=== PATIENT | male | born 1985 | race Caucasian/White ===

== ENCOUNTER 2017-01-18 20:19 | Emergency (ER) | payer BC, OTHER ==
[2017-01-18 20:31] VITALS: BP 145/103
[2017-01-18] MEDS ORDERED: Penicillin V Potassium 500 MG Tab PO ONE (20:48)
--- NOTE | 2017-01-18 20:54 | EDM.PDOC ---
ED HPI GENERAL MEDICAL PROBLEM - General Chief Complaint: ENT Problem Stated Complaint: tooth pain fever Time Seen by Provider: 01/18/17 20:24 Source of Information: Reports: Patient, RN Notes Reviewed History Limitations: Reports: No Limitations - History of Present Illness INITIAL COMMENTS - FREE TEXT/NARRATIVE: The patient states that he had for upper incisors extracted 2-3 weeks ago. He was instructed to rinse his mouth with salt water, however, he admits that he has not been compliant with that. He developed pain to the gingiva yesterday, primarily if he touches it with his tongue or food. No drainage, and no fever. He states that he contacted the office of his dentist today and was instructed to come to the ED to be checked for an infection. The patient has an appointment to follow-up with his dentist this coming , 01/20/2017. The patient's PCP is Dr. Clint Addison. Oral/Mouth Pain Score (Numeric/FACES): 5 - Related Data Allergies Allergy/AdvReac Type Severity Reaction Status Date / Time No Known Allergies Allergy Verified 12/14/15 01:16 Home Meds: Home Meds Penicillin V Potassium 500 mg PO Q6HR #8 tab 01/18/17 [Rx] Past Medical History HEENT History: Reports: Impaired Vision Endocrine/Metabolic History: Reports: Hypothyroidism (resolved) - Past Surgical History HEENT Surgical History: Reports: Myringotomy w Tube(s) (bilateral), Oral Surgery (Dental extractions, including wisdom teeth), Tonsillectomy Social & Family History - Family History Family Medical History: Noncontributory - Tobacco Use Smoking Status *Q: Current Some Day Smoker Years of Tobacco use: 17 Packs/Tins Daily: 0.1 Packs/Tins Daily Comment: Down from 2 ppd - Caffeine Use Caffeine Use: Reports: Coffee, Energy Drinks, Soda, Tea - Alcohol Use Alcohol Use History: Yes Alcohol Use Frequency: Socially - Recreational Drug Use Recreational Drug Use: No - Living Situation & Occupation Living situation: Reports: , Alone 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) ED ROS ENT - Review of Systems Review Of Systems: See Below Constitutional: Reports: No Symptoms HEENT: Reports: No Symptoms Respiratory: Reports: No Symptoms Cardiovascular: Reports: No Symptoms Endocrine: Reports: No Symptoms GI/Abdominal: Reports: No Symptoms : Reports: No Symptoms Musculoskeletal: Reports: No Symptoms Skin: Reports: No Symptoms Neurological: Reports: No Symptoms Psychiatric: Reports: No Symptoms Hematologic/Lymphatic: Reports: No Symptoms Immunologic: Reports: No Symptoms ED EXAM, ENT - Physical Exam Exam: See Below Exam Limited By: No Limitations General Appearance: Alert, WD/WN, No Apparent Distress Eye Exam: Bilateral Eye: Normal Inspection Ears: Normal External Exam, Normal Canal, Hearing Grossly Normal, Normal TMs Nose: Normal Inspection, Normal Mucousa, No Blood Mouth/Throat: Normal Lips, Normal Oropharynx, Other (Teeth #1, 2 absent. Tooth # 4 with filling. Teeth numbers 7, 8, 9, 10 absent. Gingiva in this area has not entirely healed, but no obvious swelling or infection. No pointing or drainage. Teeth #13, 14 with fillings. Tooth #19 carious. Tooth #20 absent. Teeth #21, 22 with anterior caries. Tooth #27 with anterior carlita. Tooth #29 with filling. Teeth #30, 31 absent. Tooth #32 with filling.) Head: Atraumatic, Normocephalic Neck: Normal Inspection, Supple, Non-Tender, Full Range of Motion. No: Lymphadenopathy (L), Lymphadenopathy (R) Course - Vital Signs Last Recorded V/S: Last Vital Signs Temp 36.9 C 01/18/17 20:27 Pulse 70 01/18/17 20:27 Resp 16 01/18/17 20:27 BP 145/103 H 01/18/17 20:27 Pulse Ox 100 01/18/17 20:27 - Orders/Labs/Meds Meds: Medications Discontinued Medications Generic Name Dose Route Start Last Admin Trade Name Piotr PRN Reason Stop Dose Admin Penicillin V Potassium 500 mg 01/18/17 20:48 Veetids PO 01/18/17 20:49 ONETIME ONE - Re-Assessments/Exams Free Text/Narrative Re-Assessment/Exam: 01/18/17 20:49 The patient does not have an obvious infection to his upper incisor gingiva, however, it has not healed as well as expected, likely because the patient has not been following the post procedure instructions as given to him by his dentist. I am going to start the patient on penicillin, but only write for enough until he sees his dentist this coming , 01/20/2017. Departure - Departure Time of Disposition: 20:50 Disposition: Home, Self-Care 01 Condition: Good Clinical Impression: Pain of gingiva - Discharge Information Referrals: Clint Addison Jr, MD [Primary Care Provider] - Additional Instructions: You were seen in the emergency room for pain to your upper gums, where you had teeth removed 2-3 weeks ago. On examination, no obvious infection is seen, however, to be on the safe side, you have been started on the antibiotic penicillin. Take one tablet every 6 hours, as prescribed. We recommend that you follow the instructions as previously given to by her dentist, including rinsing your mouth with salt water. Take [id number] Tylenol or ibuprofen as needed for discomfort. It is important that you follow-up with your dentist this coming , 2016, as previously scheduled. If any other problems, please do not hesitate to return to the ER.
== END 2017-01-18 21:02 | disposition home or self-care (01) ==
LOC: JD.ED 20:19
DX: K06.8 Other specified disorders of gingiva and edentulous alveolar ridge (principal); E03.9 Hypothyroidism, unspecified; F17.210 Nicotine dependence, cigarettes, uncomplicated; Z96.22 Myringotomy tube(s) status; Z98.890 Other specified postprocedural states; Z98.818 Other dental procedure status
CPT/HCPCS: 99283; A9270

== ENCOUNTER 2017-03-24 16:47 | Emergency (ER) | payer BC ==
[2017-03-24 16:57] VITALS: BP 160/95
--- NOTE | 2017-03-24 18:40 | EDM.PDOC ---
ED HPI GENERAL MEDICAL PROBLEM - General Chief Complaint: Abdominal Pain Stated Complaint: L SIDE ABDOMINAL PAIN Time Seen by Provider: 03/24/17 17:25 Source of Information: Reports: Patient History Limitations: Reports: No Limitations - History of Present Illness INITIAL COMMENTS - FREE TEXT/NARRATIVE: Patient presents for evaluation and treatment of left lower quadrant abdominal pain that radiates into his left groin and left proximal thigh. States his pain started about 2 weeks ago. He states it is more of a burning sensation. Reports that movement seems to make the pain worse. He is concerned that he may have hernia. He has not appreciated any lumps or masses. No urinary symptoms. No diarrhea or constipation. No fevers or chills. States he has never had anything like this before. Reports that his job is very physically demanding. LLQ abdomen Pain Score (Numeric/FACES): 2 - Related Data Allergies Allergy/AdvReac Type Severity Reaction Status Date / Time No Known Allergies Allergy Verified 03/24/17 16:57 Home Meds: Home Meds . [No Known Home Meds] 03/24/17 [History] Past Medical History - Past Health History Medical/Surgical History: Denies Medical/Surgical History HEENT History: Reports: Impaired Vision, Other (See Below) Other HEENT History: dental pain Endocrine/Metabolic History: Reports: Hypothyroidism - Past Surgical History HEENT Surgical History: Reports: Myringotomy w Tube(s), Oral Surgery, Tonsillectomy Social & Family History - Family History Family Medical History: Noncontributory - Tobacco Use Smoking Status *Q: Never Smoker Years of Tobacco use: 17 Packs/Tins Daily: 0.1 Second Hand Smoke Exposure: No - Caffeine Use Caffeine Use: Reports: Energy Drinks - Recreational Drug Use Recreational Drug Use: No - Living Situation & Occupation Living situation: Reports: , Alone 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 Denies: Nausea, Vomiting : Reports: Other (left groin pain). Denies: Dysuria, Flank Pain, Hematuria Musculoskeletal: Reports: Leg Pain (left proximal leg) Skin: Denies: Lumps ED EXAM, GI/ABD - Physical Exam Exam: See Below Exam Limited By: No Limitations General Appearance: Alert, WD/WN, No Apparent Distress Respiratory/Chest: No Respiratory Distress, Lungs Clear, Normal Breath Sounds Cardiovascular: Normal Peripheral Pulses (2+ dorsalis pedis and posterior tibialis pulses bilaterally), Regular Rate, Rhythm, No Murmur GI/Abdominal Exam: Normal Bowel Sounds, Soft, Non-Tender (Male) Exam: No Hernia Neurological: Alert, Oriented, Normal Cognition Psychiatric: Normal Affect, Normal Mood Skin Exam: Warm, Dry, Normal Color Course - Vital Signs Last Recorded V/S: Last Vital Signs Temp 37.2 C 03/24/17 16:54 Pulse 78 03/24/17 16:54 Resp 18 03/24/17 16:54 BP 160/95 H 03/24/17 16:54 Pulse Ox 99 03/24/17 16:54 - Orders/Labs/Meds Labs: Laboratory Tests 03/24/17 Range/Units 17:35 Urine Color Light yellow (Yellow) Urine Appearance Clear (Clear) Urine pH 7.0 (5.0-8.0) Ur Specific [place] 1.015 (1.005-1.030) Urine Protein Negative (Negative) Urine Glucose (UA) Negative (Negative) Urine Ketones Negative (Negative) Urine Occult Blood Negative (Negative) Urine Nitrite Negative (Negative) Urine Bilirubin Negative (Negative) Urine Urobilinogen 0.2 (0.2-1.0) Ur Leukocyte Esterase Negative (Negative) Urine RBC 0-5 (0-5) /hpf Urine WBC 0-5 (0-5) /hpf Ur Epithelial Cells 0-5 (0-5) /hpf Urine Bacteria Not seen (FEW) /hpf Urine Mucus Not seen (FEW) /hpf - Re-Assessments/Exams Free Text/Narrative Re-Assessment/Exam: 03/24/17 18:35 Reviewed the lab results with the patient. His exam is unremarkable. Will discharge him home. Follow-up with family medicine if his symptoms persist. Discharge instructions as documented. Departure - Departure Time of Disposition: 18:36 Disposition: Home, Self-Care 01 Condition: Good Clinical Impression: Muscle strain - Discharge Information Instructions: Muscle Strain, [id number] Referrals: Clint Addison Jr, MD [Primary Care Provider] - Forms: ED Department Discharge Additional Instructions: [id number] Tylenol or Motrin as needed for pain relief. Recommend using heat to the sore areas. If your symptoms persist beyond 2 weeks follow-up with your primary care provider. Please return to ER if your symptoms change or worsen.
== END 2017-03-24 18:58 | disposition home or self-care (01) ==
LOC: JD.ED 16:47
DX: S39.011A Strain of muscle, fascia and tendon of abdomen, initial encounter (principal); X58.XXXA Exposure to other specified factors, initial encounter
CPT/HCPCS: 81001; 99282; 99284

== ENCOUNTER 2017-04-16 12:11 | Emergency (ER) | payer BC ==
--- NOTE | 2017-04-16 12:29 | EDM.PDOC ---
ED HPI GENERAL MEDICAL PROBLEM - General Chief Complaint: Abdominal Pain Stated Complaint: ABDOMINAL PAIN Time Seen by Provider: 04/16/17 12:29 Source of Information: Reports: Patient - History of Present Illness INITIAL COMMENTS - FREE TEXT/NARRATIVE: Patient is a 32-year-old male with 3 children who is here with essentially 2 separate concerns. His primary concern is pain to his left testicle. He states that he was evaluated in the emergency room on 03/24/2017 for this and hernia was questioned at that time based on physical exam. He did follow-up with his PCP Dr. Addison and had further evaluation who thought it may be inflammation of the epididymis and patient was started on the anti-inflammatories. He states that these did help somewhat with the pain, however he is finished them now and pain is still there. Patient notes that the pain is in his left testicle, radiates up into the left groin/lower abdomen. He states that this does go away completely when he lies flat however and is significantly worse when he is active and moving around especially lifting heavy objects. Patient is also concerned about ulcer. He states that he has significant epigastric pain/heartburn and feels that the acid does reflux back up. He does not smoke or use chewing tobacco. He does do some spicy foods and moderate amount of caffeine/soda. 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 Patient states that overall he has pretty normal bowel movements. Denies regular diarrhea or constipation, does have some diarrhea with certain foods. Has been nauseated recently but no vomiting. He has had nothing to eat today but did have a monitoring. Denies any fever/chills. He has had no recent travel and no ill contacts. Abdomen Pain Score (Numeric/FACES): 8 - Related Data Allergies Allergy/AdvReac Type Severity Reaction Status Date / Time amoxicillin Allergy Burning Verified 04/16/17 12:28 Home Meds: Home Meds Levofloxacin 500 mg PO DAILY 10 Days #10 tablet 04/16/17 [Rx] Past Medical History - Past Health History Medical/Surgical History: Denies Medical/Surgical History HEENT History: Reports: Impaired Vision, Other (See Below) Other HEENT History: dental pain Endocrine/Metabolic History: Reports: Hypothyroidism - Past Surgical History HEENT Surgical History: Reports: Myringotomy w Tube(s), Oral Surgery, Tonsillectomy Social & Family History - Family History Family Medical History: Noncontributory - Tobacco Use Smoking Status *Q: Never Smoker Years of Tobacco use: 17 Packs/Tins Daily: 0.1 Second Hand Smoke Exposure: No - Caffeine Use Caffeine Use: Reports: Energy Drinks - Recreational Drug Use Recreational Drug Use: No - Living Situation & Occupation Living situation: Reports: , Alone 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 Denies: Anorexia, Black Stool, Bloody Stool, Constipation, Decreased Appetite, Hematochezia, Melena, Vomiting : Reports: Other (Left testicular/groin pain). Denies: Discharge, Dysuria Skin: Reports: No Symptoms Neurological: Reports: No Symptoms ED EXAM, GI/ABD - Physical Exam Exam: See Below Exam Limited By: No Limitations General Appearance: Alert, WD/WN, No Apparent Distress Ears: Normal External Exam, Normal Canal, Normal TMs Nose: Normal Inspection Throat/Mouth: Normal Inspection, Normal Lips, Normal Oropharynx Head: Atraumatic, Normocephalic Neck: Normal Inspection, Non-Tender Respiratory/Chest: No Respiratory Distress, Lungs Clear, Normal Breath Sounds, No Accessory Muscle Use Cardiovascular: Normal Peripheral Pulses, Regular Rate, Rhythm, No Murmur GI/Abdominal Exam: Normal Bowel Sounds, Soft, No Mass, Tender (Epigastric tenderness, mild. ). No: Distended, Guarding, Rigid, Rebound, Hernia (Male) Exam: No Hernia, Testicular Tenderness (L), Other (left epididymal swelling and tenderness, swelling to left inguinal canal but no hernia palpated) . No: Testicular Tenderness (R) Rectal (Males) Exam: Deferred Extremities: Normal Inspection Neurological: Alert, Oriented Psychiatric: Normal Affect, Normal Mood Skin Exam: Warm, Intact Course - Vital Signs Last Recorded V/S: Last Vital Signs Temp 99.3 F 04/16/17 12:32 Pulse 67 04/16/17 12:32 Resp 20 04/16/17 12:32 BP 140/94 H 04/16/17 12:32 Pulse Ox 100 04/16/17 12:32 - Orders/Labs/Meds Labs: Laboratory Tests 04/16/17 04/16/17 04/16/17 Range/Units 12:55 13:00 13:00 WBC 7.55 (4.23-9.07) K/mm3 RBC 6.77 H (4.63-6.08) M/mm3 Hgb 13.3 L (13.7-17.5) gm/L Hct 39.9 L (40.1-51.0) % MCV 58.9 L (79.0-92.2) fl MCH 19.6 L (25.7-32.2) pg MCHC 33.3 (32.2-35.5) g/dl RDW Std Deviation 35.6 (35.1-43.9) fL Plt Count 276 (163-337) K/mm3 MPV 10.9 (9.4-12.3) fl Neutrophils % (Manual) 70 H (40-60) % Band Neutrophils % 1 (0-10) % Lymphocytes % (Manual) 21 (20-40) % Atypical Lymphs % 0 % Monocytes % (Manual) 6 (2-10) % Eosinophils % (Manual) 2 (0.8-7.0) % Basophils % (Manual) 0 L (0.2-1.2) Platelet Estimate Adequate Anisocytosis 1+ slight Microcytosis 1+ slight RBC Morph Comment Not Reportable Sodium 141 (136-145) mEq/L Potassium 4.0 (3.5-5.1) mEq/L Chloride 105 (98-107) mEq/L Carbon Dioxide 27 (21-32) mEq/L Anion Gap 13.0 (5-15) BUN 8 (7-18) mg/dL Creatinine 1.1 (0.7-1.3) mg/dL Est Cr Clr Drug Dosing 114.16 mL/min Estimated GFR (MDRD) > 60 (>60) mL/min BUN/Creatinine Ratio 7.3 L (14-18) Glucose 111 H (74-106) mg/dL Calcium 9.2 (8.5-10.1) mg/dL Total Bilirubin 1.0 (0.2-1.0) mg/dL AST 21 (15-37) U/L ALT 35 (16-63) U/L Alkaline Phosphatase 59 (46-116) U/L Total Protein 8.0 (6.4-8.2) g/dl Albumin 4.6 (3.4-5.0) g/dl Globulin 3.4 gm/dL Albumin/Globulin Ratio 1.4 (1-2) Lipase 82 (73-393) U/L Urine Color Yellow (Yellow) Urine Appearance Clear (Clear) Urine pH 8.0 (5.0-8.0) Ur Specific [place] 1.015 (1.005-1.030) Urine Protein Negative (Negative) Urine Glucose (UA) Negative (Negative) Urine Ketones Negative (Negative) Urine Occult Blood Negative (Negative) Urine Nitrite Negative (Negative) Urine Bilirubin Negative (Negative) Urine Urobilinogen 0.2 (0.2-1.0) Ur Leukocyte Esterase Negative (Negative) Urine RBC 0-5 (0-5) /hpf Urine WBC 0-5 (0-5) /hpf Ur Epithelial Cells 0-5 (0-5) /hpf Urine Bacteria Few (FEW) /hpf Urine Mucus Few (FEW) /hpf H. pylori IgG Antibody (NEGATIVE) 04/16/17 Range/Units 13:00 WBC (4.23-9.07) K/mm3 RBC (4.63-6.08) M/mm3 Hgb (13.7-17.5) gm/L Hct (40.1-51.0) % MCV (79.0-92.2) fl MCH (25.7-32.2) pg MCHC (32.2-35.5) g/dl RDW Std Deviation (35.1-43.9) fL Plt Count (163-337) K/mm3 MPV (9.4-12.3) fl Neutrophils % (Manual) (40-60) % Band Neutrophils % (0-10) % Lymphocytes % (Manual) (20-40) % Atypical Lymphs % % Monocytes % (Manual) (2-10) % Eosinophils % (Manual) (0.8-7.0) % Basophils % (Manual) (0.2-1.2) Platelet Estimate Anisocytosis Microcytosis RBC Morph Comment Sodium (136-145) mEq/L Potassium (3.5-5.1) mEq/L Chloride (98-107) mEq/L Carbon Dioxide (21-32) mEq/L Anion Gap (5-15) BUN (7-18) mg/dL Creatinine (0.7-1.3) mg/dL Est Cr Clr Drug Dosing mL/min Estimated GFR (MDRD) (>60) mL/min BUN/Creatinine Ratio (14-18) Glucose (74-106) mg/dL Calcium (8.5-10.1) mg/dL Total Bilirubin (0.2-1.0) mg/dL AST (15-37) U/L ALT (16-63) U/L Alkaline Phosphatase (46-116) U/L Total Protein (6.4-8.2) g/dl Albumin (3.4-5.0) g/dl Globulin gm/dL Albumin/Globulin Ratio (1-2) Lipase (73-393) U/L Urine Color (Yellow) Urine Appearance (Clear) Urine pH (5.0-8.0) Ur Specific [place] (1.005-1.030) Urine Protein (Negative) Urine Glucose (UA) (Negative) Urine Ketones (Negative) Urine Occult Blood (Negative) Urine Nitrite (Negative) Urine Bilirubin (Negative) Urine Urobilinogen (0.2-1.0) Ur Leukocyte Esterase (Negative) Urine RBC (0-5) /hpf Urine WBC (0-5) /hpf Ur Epithelial Cells (0-5) /hpf Urine Bacteria (FEW) /hpf Urine Mucus (FEW) /hpf H. pylori IgG Antibody Negative (NEGATIVE) Meds: Medications Discontinued Medications Generic Name Dose Route Start Last Admin Trade Name Freq PRN Reason Stop Dose Admin Al Hydroxide/Mg Hydroxide 30 0 ml 04/16/17 12:49 04/16/17 13:01 ml/ Lidocaine HCl 15 ml PO 04/16/17 12:50 45 ml ONETIME ONE Administration - Re-Assessments/Exams Free Text/Narrative Re-Assessment/Exam: WBC 7,550 with 70 neutrophils and no bands. Hgb 13.3, this is chronic as he has beta thalessemia. CMP unremarkable. H Pylori negative. Suspect GERD, will try omeprazole. Discussed dietary modification at length as well as elevated HOB. UA was negative. Patient reports negative GC/chlamydia testing last week with PCP. Testicular US demonstrates small bilateral hydroceles. Clinical diagnosis of epididymitis though not visualized on ultrasound. Will treat with Levaquin 10 days. And recommend that he take anti-inflammatory as well. He will follow-up with PCP next week if this is not significantly improved. Patient's symptoms. 04/16/17 13:43 04/16/17 15:44 Departure - Departure Time of Disposition: 14:03 Disposition: Home, Self-Care 01 Condition: Good Clinical Impression: Epididymitis, left GERD (gastroesophageal reflux disease) Qualifiers: Esophagitis presence: esophagitis presence not specified Qualified Code(s): K21.9 - Gastro-esophageal reflux disease without esophagitis - Discharge Information Prescriptions: Levofloxacin 500 mg PO DAILY 10 Days #10 tablet Instructions: Epididymitis, Gastroesophageal Reflux Disease, Adult Referrals: Clint Addison Jr, MD [Primary Care Provider] - Forms: ED Department Discharge Additional Instructions: Modify your diet to smaller more frequent meals. Avoid spicy/citrus food and drink. Start omeprazole 20mg daily prior to breakfast. Wear supportive underwear. Ice or heat as needed for pain Take 2 OTC Aleve 2x daily as needed for pain/inflammation. Take full course of antibiotic, once daily for 10 days. Caution for tendon injury with lifting. Follow-up with PCP or certainly return to ER if needed.
[2017-04-16 12:34] VITALS: BP 140/94
[2017-04-16] MEDS ORDERED: Alum Hydrox/Mag Hydrox/Simeth 30 ML, Lidocaine 2% 15 ML PO ONE ×2 (12:49)
--- NOTE | 2017-04-16 13:56 | US ---
Testicular ultrasound: Multiple real-time images of the testicles were obtained. Testicles have a homogeneous ultrasound appearance. Both arterial and venous blood flow are seen within the testicles. No intratesticular abnormality is seen. Right and left epididymis appears unremarkable. Minimal hydroceles are seen on both sides. Measurements: Right testicle: 5.1 x 2.6 x 3.3 cm Left testicle: 5.0 x 2.9 x 3.6 cm Impression: 1. Small bilateral hydroceles. 2. No additional abnormality is seen on testicular ultrasound exam. Diagnostic code #2
== END 2017-04-16 14:12 | disposition home or self-care (01) ==
LOC: JD.ED 12:11
DX: N45.1 Epididymitis (principal); K21.9 Gastro-esophageal reflux disease without esophagitis; Z88.1 Allergy status to other antibiotic agents
CPT/HCPCS: 36415; 76870; 80053; 81001; 83690; 85025; 86677; 93975; 99284; A9270; 99283

== ENCOUNTER 2017-08-14 19:37 | Emergency (ER) | payer BC ==
[2017-08-14] MEDS ORDERED: Sodium Chloride 0.9% 10 ML Syringe FLUSH PRN ×2 (21:11→21:14)
[2017-08-14] MEDS ORDERED: Morphine 2 MG/ML Syringe IVPUSH ONE (21:12)
[2017-08-14] MEDS ORDERED: Ondansetron 4 MG/2 ML SDV IVPUSH ONE (21:12)
[2017-08-14] MEDS ORDERED: Iopamidol 612 MG/ML 100 ML Bottle IVPUSH ONE (21:14)
--- NOTE | 2017-08-14 21:15 | EDM.PDOC ---
ED HPI GENERAL MEDICAL PROBLEM - General Chief Complaint: Skin Complaint Stated Complaint: RED NECK AND SWOLLEN Time Seen by Provider: 08/14/17 21:12 Source of Information: Reports: Patient History Limitations: Reports: No Limitations - History of Present Illness INITIAL COMMENTS - FREE TEXT/NARRATIVE: 32-year-old male presents for evaluation treatment of swelling and erythema to his neck. Patient reports he had symptoms for the last 2 weeks. He was seen at the walk-in clinic and started on a Medrol Dosepak and clindamycin. He continues to take these but states his symptoms are worsening. He currently complains of a burning pain intermittently to his neck. He also experiences erythema to the neck. He appreciates that he has tooth pain and he has poor dentition. No blistering to the rash. No fevers, chills, nausea or vomiting. He denies any throat swelling or shortness of breath. States he is "a little bit "of a sore throat. No history of any chronic medical conditions such as diabetes. Denies any new lotions, soaps, detergents, etc. PCP is Dr. Addison. Duration: Week(s): (2) Neck Pain Score (Numeric/FACES): 2 - Related Data Allergies Allergy/AdvReac Type Severity Reaction Status Date / Time amoxicillin Allergy Burning Verified 08/14/17 19:51 Home Meds: Home Meds Clindamycin HCl 300 mg PO TID 08/14/17 [History] Famotidine [Pepcid] 20 mg PO BID #14 tab 08/14/17 [Rx] Methylprednisolone [IJD: Methylprednisolone] 1 dose PO ASDIRECTED 08/14/17 [ History] Prednisone [IMW: predniSONE] 20 mg PO BID #10 tab 08/14/17 [Rx] Past Medical History - Past Health History Medical/Surgical History: Denies Medical/Surgical History HEENT History: Reports: Impaired Vision, Other (See Below) Other HEENT History: dental pain Endocrine/Metabolic History: Reports: Hypothyroidism Other Endocrine/Metabolic History: thyroid issues as a child; not on medication any more. 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 Denies: Throat Swelling Respiratory: Denies: Shortness of Breath Cardiovascular: Denies: Chest Pain GI/Abdominal: Denies: Nausea, Vomiting Musculoskeletal: Reports: Neck Pain (burning) Skin: Reports: Erythema (nack) ED EXAM, SKIN/RASH Exam: See Below Exam Limited By: No Limitations General Appearance: Alert, WD/WN, No Apparent Distress Ears: Normal External Exam Nose: Normal Inspection Throat/Mouth: Normal Inspection, Normal Lips, Normal Voice, No Airway Compromise , Other (no uvula swelling) Respiratory/Chest: No Respiratory Distress, Lungs Clear, Normal Breath Sounds Cardiovascular: Normal Peripheral Pulses, Regular Rate, Rhythm, No Murmur Extremities: Normal Inspection Neurological: Alert, Oriented, Normal Cognition Psychiatric: Normal Affect, Normal Mood Skin: Warm, Dry, Erythema, Increased Warmth (slight). No: Zoster-Like Rash Location, Skin: Neck Characteristics: Erythematous Associated features: Warmth (minimal), Tenderness, Swelling (minmal). No: Crusting, Weeping Course - Vital Signs Last Recorded V/S: Last Vital Signs Temp 37.6 C 08/14/17 19:53 Pulse 81 08/14/17 19:53 Resp 18 08/14/17 19:53 BP Pulse Ox 99 08/14/17 19:53 - Orders/Labs/Meds Labs: Laboratory Tests 08/14/17 08/14/17 Range/Units 21:20 21:20 WBC 12.58 H (4.23-9.07) K/mm3 RBC 6.71 H (4.63-6.08) M/mm3 Hgb 13.6 L (13.7-17.5) gm/L Hct 40.9 (40.1-51.0) % MCV 61.0 L (79.0-92.2) fl MCH 20.3 L (25.7-32.2) pg MCHC 33.3 (32.2-35.5) g/dl RDW Std Deviation 38.2 (35.1-43.9) fL Plt Count 269 (163-337) K/mm3 MPV 11.2 (9.4-12.3) fl Neutrophils % (Manual) 68 H (40-60) % Band Neutrophils % 0 (0-10) % Lymphocytes % (Manual) 23 (20-40) % Atypical Lymphs % 0 % Monocytes % (Manual) 8 (2-10) % Eosinophils % (Manual) 0 L (0.8-7.0) % Basophils % (Manual) 1 (0.2-1.2) Platelet Estimate Adequate Plt Morphology Comment Normal Hypochromasia 3+ marked Poikilocytosis 2+ moderate Microcytosis 2+ moderate Target Cells 2+ moderate RBC Morph Comment Not Reportable Sodium 141 (136-145) mEq/L Potassium 3.9 (3.5-5.1) mEq/L Chloride 103 (98-107) mEq/L Carbon Dioxide 30 (21-32) mEq/L Anion Gap 11.9 (5-15) BUN 9 (7-18) mg/dL Creatinine 0.9 (0.7-1.3) mg/dL Est Cr Clr Drug Dosing 135.73 mL/min Estimated GFR (MDRD) > 60 (>60) mL/min BUN/Creatinine Ratio 10.0 L (14-18) Glucose 93 (74-106) mg/dL Calcium 9.6 (8.5-10.1) mg/dL Total Bilirubin 0.7 (0.2-1.0) mg/dL AST 19 (15-37) U/L ALT 42 (16-63) U/L Alkaline Phosphatase 59 (46-116) U/L C-Reactive Protein < 0.2 (<1.0) mg/dL Total Protein 7.7 (6.4-8.2) g/dl Albumin 4.5 (3.4-5.0) g/dl Globulin 3.2 gm/dL Albumin/Globulin Ratio 1.4 (1-2) Meds: Medications Discontinued Medications Generic Name Dose Route Start Last Admin Trade Name Freq PRN Reason Stop Dose Admin Diphenhydramine HCl 50 mg 08/14/17 22:27 08/14/17 22:36 Benadryl IVPUSH 08/14/17 22:28 50 mg ONETIME ONE Administration Famotidine 20 mg 08/14/17 22:27 08/14/17 22:38 Pepcid IVPUSH 08/14/17 22:28 20 mg ONETIME ONE Administration Iopamidol 80 ml 08/14/17 21:14 08/14/17 21:39 Isovue-300 (61%) IVPUSH 08/14/17 21:15 80 ml ONETIME ONE Administration Methylprednisolone Sodium Succinate 125 mg 08/14/17 22:27 08/14/17 22:33 Solu-Medrol IVPUSH 08/14/17 22:28 125 mg ONETIME ONE Administration Morphine Sulfate 2 mg 08/14/17 21:12 08/14/17 21:24 Morphine IVPUSH 08/14/17 21:13 2 mg ONETIME ONE Administration Ondansetron HCl 4 mg 08/14/17 21:12 08/14/17 21:29 Zofran IVPUSH 08/14/17 21:13 4 mg ONETIME ONE Administration Sodium Chloride 10 ml 08/14/17 21:11 08/14/17 21:25 Saline Flush FLUSH 10 ml ASDIRECTED PRN Administration Keep Vein Open Sodium Chloride 10 ml 08/14/17 21:14 08/14/17 21:39 Saline Flush FLUSH 10 ml ONETIME PRN Administration IV FLUSH - Radiology Interpretation Free Text/Narrative:: CT soft tissue neck with IV contrast impression per vrad normal neck CT. - Re-Assessments/Exams Free Text/Narrative Re-Assessment/Exam: 08/14/17 22:27 I reviewed the labs and imaging with the patient. Appears to be an allergic reaction. pain improved with the morphine. I will give him some meds here and extend his prednisone. He may discontinue the clindamycin as it does not seem to be infectious in etiology. Discharge instructions as documented. Departure - Departure Time of Disposition: 22:28 Disposition: Home, Self-Care 01 Condition: Fair Clinical Impression: Allergic dermatitis - Discharge Information Prescriptions: Famotidine [Pepcid] 20 mg PO BID #14 tab Prednisone [IMW: predniSONE] 20 mg PO BID #10 tab Instructions: Contact Dermatitis, [id number] Referrals: Clint Addison Jr, MD [Primary Care Provider] - Forms: ED Department Discharge Additional Instructions: Stop the medrol dos michael. Start prednisone 20mg bid x 5 days tomorrow. take the pepcid 1 tab PO bid x 7 days. benadryl 1-2 tabs PO every 6 hours as needed for itching and swelling or May instead take claritin or zytrec daily x 7 days. recommend stoping the clindamycin. drink plenty of fluids. Follow-up with your PCP in 7-10 days for a recheck of your symptoms. Please return to the ER should your symptoms change or worsen.
[2017-08-14] MEDS ORDERED: diphenhydrAMINE 50 MG/ML SDV IVPUSH ONE (22:27)
[2017-08-14] MEDS ORDERED: Famotidine 20 MG/2 ML SDV IVPUSH ONE (22:27)
[2017-08-14] MEDS ORDERED: methylPREDNISolone Sodium Succinate 125 MG/2 ML SDV IVPUSH ONE (22:27)
--- NOTE | 2017-08-15 07:46 | CT ---
CT neck Technique: Multiple axial sections were obtained from above the external auditory canals inferiorly through the lung apices. Intravenous contrast was utilized. Reconstructed coronal and sagittal images were reviewed. Comparison: No previous study. Findings: Mastoid sinuses and paranasal sinuses are clear. Parotid and submandibular salivary glands appear within normal limits. Scattered lymph nodes are seen which are felt to be within normal limits. Thyroid gland shows normal enhancement. Visualized lung apices are clear. No neck mass is seen. No inflammatory change is identified with certainty. Bone window settings were reviewed which appear within normal limits for the patient's age. Impression: 1. No abnormality is appreciated on CT study of the neck. Diagnostic code #1 Agree with preliminary report issued by [facility] ([facility] preliminary report dictated on 08/14/17, 10:53 PM Central Time)
== END 2017-08-14 22:43 | disposition home or self-care (01) ==
LOC: JD.ED 19:37
DX: L23.9 Allergic contact dermatitis, unspecified cause (principal); Z88.1 Allergy status to other antibiotic agents; Z87.891 Personal history of nicotine dependence
CPT/HCPCS: 36415; 70491; 80053; 85025; 86140; 96374; 96375; 99284; J1200; J2270; J2405; J2930; J7050; Q9967; 99283

== ENCOUNTER 2018-05-28 17:21 | Emergency (ER) | payer BC ==
[2018-05-28 17:32] VITALS: BP 156/87
[2018-05-28] MEDS ORDERED: Clindamycin HCl 150 MG Cap PO ONE (17:54)
[2018-05-28] MEDS ORDERED: Ketorolac 30 MG/ML SDV IM ONE (17:55)
--- NOTE | 2018-05-28 18:03 | EDM.PDOC ---
ED HPI GENERAL MEDICAL PROBLEM - General Chief Complaint: ENT Problem Stated Complaint: DENTAL COMPLAINT Time Seen by Provider: 05/28/18 17:35 Source of Information: Reports: Patient, Family, RN Notes Reviewed History Limitations: Reports: No Limitations - History of Present Illness INITIAL COMMENTS - FREE TEXT/NARRATIVE: Patient is a 33 year old male who presents to the ED for the evaluation of dental pain. He states that he had pain in his left lower back tooth and notes that he needs a root canal done, and has had previous work done on some of the teeth on his lower jaw. This pain started and now he feels that the swelling is traveling down into his neck. He states that he had some left over penicillin from a previous visit that he did start taking. He notes an allergy to amoxicillin. He did have work done to this tooth around 3 months ago. He states that his dentist does not work on Fridays, and he planned on going in on Tuesday to see if he can get in. He has taken 2 tab aleve every 6 hours and 400mg ibuprofen every 6 hours for pain relief. He states that this is not helping much. 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: penicillini Left Lower Tooth/Teeth Pain Score (Numeric/FACES): 8 - Related Data Allergies Allergy/AdvReac Type Severity Reaction Status Date / Time amoxicillin Allergy Burning Verified 08/14/17 19:51 Home Meds: Home Meds Clindamycin HCl 300 mg PO QID #40 capsule 05/28/18 [Rx] Past Medical History - Past Health History Medical/Surgical History: Denies Medical/Surgical History HEENT History: Reports: Impaired Vision, Other (See Below) Other HEENT History: dental pain Endocrine/Metabolic History: Reports: Hypothyroidism Other Endocrine/Metabolic History: thyroid issues as a child; not on medication any more. 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 Denies: Throat Pain, Throat Swelling Respiratory: Reports: No Symptoms Cardiovascular: Reports: No Symptoms Endocrine: Reports: No Symptoms GI/Abdominal: Reports: No Symptoms : Reports: No Symptoms Musculoskeletal: Reports: No Symptoms Skin: Reports: Erythema Neurological: Reports: No Symptoms Psychiatric: Reports: No Symptoms Hematologic/Lymphatic: Reports: No Symptoms Immunologic: Reports: No Symptoms ED EXAM, ENT - Physical Exam Exam: See Below Exam Limited By: No Limitations General Appearance: Alert, WD/WN, No Apparent Distress Eye Exam: Bilateral Eye: EOMI, Normal Inspection, PERRL Ears: Normal External Exam, Normal Canal, Hearing Grossly Normal, Normal TMs Nose: Normal Inspection Mouth/Throat: Normal Inspection, Normal Gums, Normal Lips, Normal Oropharynx, Normal Teeth. No: Dental Abcess, Dental Pain (left lower posterior jaw, last 2 molars with fillings), Dental Trauma Head: Atraumatic, Normocephalic Neck: Normal Inspection, Supple, Non-Tender, Full Range of Motion Respiratory/Chest: No Respiratory Distress, Lungs Clear, Normal Breath Sounds, No Accessory Muscle Use, Chest Non-Tender Cardiovascular: Normal Peripheral Pulses, Regular Rate, Rhythm, No Murmur Extremities: Normal Inspection, Normal Capillary Refill Neurological: Alert, Oriented, Normal Cognition, No Motor/Sensory Deficits Psychiatric: Normal Affect, Normal Mood Skin: Warm, Dry, Intact, Normal Color, No Rash, Erythema (noted to neck just inferior to jaw) Course - Vital Signs Last Recorded V/S: Last Vital Signs Temp 99.1 F 05/28/18 17:26 Pulse 76 05/28/18 17:26 Resp 20 05/28/18 17:26 BP 156/87 H 05/28/18 17:32 Pulse Ox 100 05/28/18 17:26 - Orders/Labs/Meds Meds: Medications Discontinued Medications Generic Name Dose Route Start Last Admin Trade Name Freq PRN Reason Stop Dose Admin Clindamycin HCl 600 mg 05/28/18 17:54 05/28/18 18:03 Cleocin PO 05/28/18 17:55 600 mg ONETIME ONE Administration Ketorolac Tromethamine 30 mg 05/28/18 17:55 01/27/19 18:04 Toradol IM 05/28/18 17:56 30 mg ONETIME ONE Administration - Re-Assessments/Exams Free Text/Narrative Re-Assessment/Exam: 05/28/18 18:07 Pt presents to the ED for the evaluation of dental pain. Due to his allergy to amoxicillin, I have told him to not take penicillin. I have ordered clindamycin 600mg and 30mg IM toradol. I have sent a prescription for clindamycin to [facility]. Departure - Departure Time of Disposition: 18:10 Disposition: Home, Self-Care 01 Condition: Fair Clinical Impression: Pain, dental - Discharge Information *PRESCRIPTION DRUG MONITORING PROGRAM REVIEWED*: No *COPY OF PRESCRIPTION DRUG MONITORING REPORT IN PATIENT LB: No Prescriptions: Clindamycin HCl 300 mg PO QID #40 capsule Instructions: Dental Abscess, [id number] Referrals: Clint Addison Jr, MD [Primary Care Provider] - Forms: ED Department Discharge Additional Instructions: You have been evaluated in the ED for dental pain. You have been provided with a prescription for clindamycin 300mg QID for 10 days. This was sent to [facility] in [facility] by Saeed. Please pick this up tomorrow to continue the course of antibiotics. Please take 600mg Ibuprofen or 2 tabs aleve every 6 hours as needed in an alternating fashion for pain relief. Please follow up with your dentist tomorrow (05-29-18). Please return to the ED if your symptoms should change or worsen.
== END 2018-05-28 18:22 | disposition home or self-care (01) ==
LOC: JD.ED 17:21
DX: K08.89 Other specified disorders of teeth and supporting structures (principal); E03.9 Hypothyroidism, unspecified; Z96.22 Myringotomy tube(s) status; Z98.890 Other specified postprocedural states; Z88.1 Allergy status to other antibiotic agents; Z87.891 Personal history of nicotine dependence
CPT/HCPCS: 96372; 99282; A9270; J1885; 99283

== ENCOUNTER 2020-12-20 13:34 | Emergency (ER) | payer BC ==
[2020-12-20] MEDS ORDERED: Sodium Chloride 0.9% 10 ML Syringe FLUSH PRN (13:54)
--- NOTE | 2020-12-20 14:06 | EDM.PDOC ---
ED HPI GENERAL MEDICAL PROBLEM - General Chief Complaint: Chest Pain Stated Complaint: LEFT UPPER CHEST PAIN Time Seen by Provider: 12/20/20 13:54 Source of Information: Reports: Patient, RN Notes Reviewed History Limitations: Reports: No Limitations - History of Present Illness INITIAL COMMENTS - FREE TEXT/NARRATIVE: Patient is a 35-year-old male who presents to the ER for his left upper chest discomfort. Patient notes that he has been having a few different issues for the last few days, he developed a sore throat, 2 days ago, and developed some left upper chest pain last night. States that he has not had any trauma to the area, nor can he remember lifting anything that would have strained anything. He has not had any cough, fevers, chills, nausea/vomiting/diarrhea. Patient went to the walk-in clinic for initial management, apparently they did swab him for strep, but he is unaware of the results at this time and then told him to come to the ER due to his chest discomfort. Patient states that he thought he may have had COVID-19 back in March or April of last year, and he did not get the vaccines for COVID-19. Primary care provider works at [facility] he cannot remember the name at this time. Left Chest Pain Score (Numeric/FACES): 2 - Related Data Allergies Allergy/AdvReac Type Severity Reaction Status Date / Time amoxicillin Allergy Burning Verified 12/20/20 13:48 Home Meds: Home Meds Budesonide/Formoterol Fumarate [Budesonide-Formoterol 160-4.5] 2 puff INH BID PRN 12/20/20 [History] Past Medical History HEENT History: Reports: Impaired Vision Respiratory History: Reports: Asthma Endocrine/Metabolic History: Reports: Hypothyroidism Other Endocrine/Metabolic History: thyroid issues as a child; not on medication any more. Hematologic History: Reports: Other (See Below) Other Hematologic History: Beta-thalasemia anemia - Infectious Disease History Infectious Disease History: Reports: Chicken Pox, Novel Coronavirus (possible/suspect Mar or Apr 2020) - Past Surgical History HEENT Surgical History: Reports: Myringotomy w Tube(s), Oral Surgery, Tonsillectomy Other HEENT Surgeries/Procedures: trauma to front of mouth Social & Family History - Family History Family Medical History: No Pertinent Family History - Tobacco Use Tobacco Use Status *Q: Former Tobacco User Used Tobacco, but Quit: Yes Month/Year Tobacco Last Used: 10/2019 - Caffeine Use Caffeine Use: Reports: Energy Drinks - Recreational Drug Use Recreational Drug Use: No - Living Situation & Occupation Living situation: Reports: , Alone 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 ED EXAM, GENERAL - Physical Exam Exam: See Below Exam Limited By: No Limitations General Appearance: Alert, WD/WN, No Apparent Distress Throat/Mouth: Normal Inspection, Normal Lips, Normal Teeth, Normal Gums, Normal Oropharynx, Normal Voice, No Airway Compromise Head: Atraumatic, Normocephalic Neck: Normal Inspection, Supple, Non-Tender, Full Range of Motion Respiratory/Chest: No Respiratory Distress, Lungs Clear, Normal Breath Sounds, No Accessory Muscle Use, Chest Non-Tender Cardiovascular: Normal Peripheral Pulses, Regular Rate, Rhythm, No Edema Peripheral Pulses: 2+: Radial (L), Radial (R) GI/Abdominal: Normal Bowel Sounds, Soft, Non-Tender, No Distention, No Mass Extremities: Normal Inspection, Normal Capillary Refill Neurological: Alert, Oriented, Normal Cognition, No Motor/Sensory Deficits Psychiatric: Normal Affect, Normal Mood Skin Exam: Warm, Dry, Intact, Normal Color, No Rash #1 Interpretation EKG Date: 12/20/20 Time: 13:53 Rhythm: NSR Rate (Beats/Min): 79 Warriors Mark: Normal P-Wave: Present QRS: Normal ST-T: Normal QT: Normal Comparison: NA - No Prior EKG EKG Interpretation Comments: No obvious ischemia or acute ST changes noted, reviewed by myself and Dr. Alvarez. Course - Vital Signs Last Recorded V/S: Last Vital Signs Temp 98.9 F 12/20/20 13:43 Pulse 80 12/20/20 13:43 Resp 18 12/20/20 13:43 BP 161/112 H 12/20/20 13:43 Pulse Ox 100 12/20/20 13:43 - Orders/Labs/Meds Orders: Active Orders 24 hr Category Date Time Status Peripheral IV Care [RC] . DIRECTED Care 12/20/20 13:54 Active Chest 1V Frontal [CR] Stat Exams 12/20/20 13:54 Taken Sodium Chloride 0.9% [Saline Flush] Med 12/20/20 13:54 Active 10 ml FLUSH ASDIRECTED PRN Peripheral IV Insertion Adult [OM.PC] Stat Oth 12/20/20 13:54 Ordered Medication Orders Sodium Chloride (Sodium Chloride 0.9% 10 Ml Syringe) 10 ml FLUSH ASDIRECTED PRN PRN Reason: Keep Vein Open Last Admin: 12/20/20 14:07 Dose: 10 ml Documented by: MARCELINO Labs: Laboratory Tests 12/20/20 12/20/20 12/20/20 Range/Units 13:55 13:55 13:55 WBC 6.65 (4.23-9.07) K/mm3 RBC 6.54 H (4.63-6.08) M/mm3 Hgb 12.8 L (13.7-17.5) gm/dl Hct 39.0 L (40.1-51.0) % MCV 59.6 L (79.0-92.2) fl MCH 19.6 L (25.7-32.2) pg MCHC 32.8 (32.2-35.5) g/dl RDW Std Deviation 35.6 (35.1-43.9) fL Plt Count 276 (163-337) K/mm3 MPV 11.4 (9.4-12.3) fl Neut % (Auto) 66.1 (34.0-67.9) % Lymph % (Auto) 25.0 (21.8-53.1) % Brule % (Auto) 7.2 (5.3-12.2) % Eos % (Auto) 1.4 (0.8-7.0) Baso % (Auto) 0.3 (0.1-1.2) % Neut # (Auto) 4.40 (1.78-5.38) K/mm3 Lymph # (Auto) 1.66 (1.32-3.57) K/mm3 Brule # (Auto) 0.48 (0.30-0.82) K/mm3 Eos # (Auto) 0.09 (0.04-0.54) K/mm3 Baso # (Auto) 0.02 (0.01-0.08) K/mm3 Manual Slide Review Abnormal smear PT 10.8 (9.7-12.0) SECONDS INR 1.01 APTT 26.7 (21.7-31.4) SECONDS Sodium 140 (136-145) mEq/L Potassium 3.6 (3.5-5.1) mEq/L Chloride 104 (98-107) mEq/L Carbon Dioxide 27 (21-32) mEq/L Anion Gap 12.6 (5-15) BUN 11 (7-18) mg/dL Creatinine 1.1 (0.7-1.3) mg/dL Est Cr Clr Drug Dosing 107.94 mL/min Estimated GFR (MDRD) > 60 (>60) mL/min BUN/Creatinine Ratio 10.0 L (14-18) Glucose 107 H (70-99) mg/dL Calcium 8.7 (8.5-10.1) mg/dL Magnesium 2.1 (1.8-2.4) mg/dL Total Bilirubin 1.0 (0.2-1.0) mg/dL AST 14 L (15-37) U/L ALT 32 (16-63) U/L Alkaline Phosphatase 56 (46-116) U/L Troponin I < 0.017 (0.00-0.056) ng/mL NT-Pro-B Natriuret Pep (0-125) pg/mL Total Protein 7.9 (6.4-8.2) g/dl Albumin 4.5 (3.4-5.0) g/dl Globulin 3.4 gm/dL Albumin/Globulin Ratio 1.3 (1-2) SARS-CoV-2 RNA (ROSI) (NEGATIVE) 12/20/20 12/20/20 Range/Units 13:55 14:00 WBC (4.23-9.07) K/mm3 RBC (4.63-6.08) M/mm3 Hgb (13.7-17.5) gm/dl Hct (40.1-51.0) % MCV (79.0-92.2) fl MCH (25.7-32.2) pg MCHC (32.2-35.5) g/dl RDW Std Deviation (35.1-43.9) fL Plt Count (163-337) K/mm3 MPV (9.4-12.3) fl Neut % (Auto) (34.0-67.9) % Lymph % (Auto) (21.8-53.1) % Brule % (Auto) (5.3-12.2) % Eos % (Auto) (0.8-7.0) Baso % (Auto) (0.1-1.2) % Neut # (Auto) (1.78-5.38) K/mm3 Lymph # (Auto) (1.32-3.57) K/mm3 Brule # (Auto) (0.30-0.82) K/mm3 Eos # (Auto) (0.04-0.54) K/mm3 Baso # (Auto) (0.01-0.08) K/mm3 Manual Slide Review PT (9.7-12.0) SECONDS INR APTT (21.7-31.4) SECONDS Sodium (136-145) mEq/L Potassium (3.5-5.1) mEq/L Chloride (98-107) mEq/L Carbon Dioxide (21-32) mEq/L Anion Gap (5-15) BUN (7-18) mg/dL Creatinine (0.7-1.3) mg/dL Est Cr Clr Drug Dosing mL/min Estimated GFR (MDRD) (>60) mL/min BUN/Creatinine Ratio (14-18) Glucose (70-99) mg/dL Calcium (8.5-10.1) mg/dL Magnesium (1.8-2.4) mg/dL Total Bilirubin (0.2-1.0) mg/dL AST (15-37) U/L ALT (16-63) U/L Alkaline Phosphatase (46-116) U/L Troponin I (0.00-0.056) ng/mL NT-Pro-B Natriuret Pep 29 (0-125) pg/mL Total Protein (6.4-8.2) g/dl Albumin (3.4-5.0) g/dl Globulin gm/dL Albumin/Globulin Ratio (1-2) SARS-CoV-2 RNA (ROSI) Negative (NEGATIVE) Meds: Medications Generic Name Dose Route Start Last Admin Trade Name Freq PRN Reason Stop Dose Admin Sodium Chloride 10 ml 12/20/20 13:54 12/20/20 14:07 Sodium Chloride 0.9% 10 Ml Syringe FLUSH 10 ml ASDIRECTED PRN Administration Keep Vein Open - Re-Assessments/Exams Free Text/Narrative Re-Assessment/Exam: 12/20/20 14:08 Patient presents to the ER for evaluation of his left upper chest pain, no other generalized symptoms. We will go ahead and do a COVID-19 screen, get some basic labs, along with a chest x-ray. EKG at time of triage shows normal sinus rhythm with no acute ST change or abnormalities appreciated by myself or Dr. Alvarez. 12/20/20 15:15 Laboratory evaluation is essentially unremarkable, troponin undetectably low. COVID-19 screen is negative for today's purposes patient's chest x-ray d emonstrated no signs of acute infiltrates. Official radiology read is still pending. He was able to review his [facility] MyChart, and his strep screen was negative for today's purposes, this does appear to be done by nucleic acid testing. We will go ahead and discharge the patient home with general recommendations and have him follow-up in a few days for repeat COVID-19 testing if he is not feeling much better. Departure - Departure Time of Disposition: 15:16 Disposition: Home, Self-Care 01 Condition: Good Clinical Impression: Viral URI - Discharge Information *PRESCRIPTION DRUG MONITORING PROGRAM REVIEWED*: No *COPY OF PRESCRIPTION DRUG MONITORING REPORT IN PATIENT LB: No Instructions: Nonspecific Chest Pain, Adult, [id number], Viral Respiratory Infection, [id number] Referrals: PCP,None [Primary Care Provider] - Forms: ED Department Discharge Additional Instructions: You have been evaluated in the ED today for your cold like symptoms. This is likely a viral illness in etiology. Your chest x-ray showed no sign of a pneumonia or other consolidative purposes. Your COVID-19 screen was negative for today's purposes Please increase your fluid intake. Get plenty of rest as well. You should feel better in a few days. As with any illness, please try to limit your exposure to others to help mitigate the spread of germs. Please also remember to wash your hands after you cough/sneeze. Please try to limit touching your face, and then touching other surfaces. Recommend that you take some [id number] nasal decongestants, cough/cold remedies to combat this. You may take 500mg Tylenol (acetaminophen) or 600mg Advil/Motrin (ibuprofen) every 6 hours as needed for further pain/fever relief. Do not exceed 4000 mg Tylenol or 3200 mg ibuprofen in a 24-hour time span. If you have high blood pressure, medications like Coricidin would be adequate to use. If your symptoms are not better in one week's time recommend that you follow up in a clinic or your primary care provider. Our [facility] clinic number is [phone], the [facility] clinic is [phone]. Any family practice provider would be able to provide you with the services. Please return to the ED if your symptoms change or worsen. Sepsis Event Note (ED) - Evaluation Sepsis Screening Result: No Definite Risk - Focused Exam Vital Signs: Vital Signs Temp Pulse Resp BP Pulse Ox 12/20/20 13:43 98.9 F 80 18 161/112 H 100 - My Orders Last 24 Hours: My Active Orders 12/20/20 13:54 Peripheral IV Care [RC] . DIRECTED Chest 1V Frontal [CR] Stat Sodium Chloride 0.9% [Saline Flush] 10 ml FLUSH ASDIRECTED PRN Peripheral IV Insertion Adult [OM.PC] Stat - Assessment/Plan Last 24 Hours: My Active Orders 12/20/20 13:54 Peripheral IV Care [RC] . DIRECTED Chest 1V Frontal [CR] Stat Sodium Chloride 0.9% [Saline Flush] 10 ml FLUSH ASDIRECTED PRN Peripheral IV Insertion Adult [OM.PC] Stat
[2020-12-20 15:37] VITALS: BP 153/99; PULSE 77
--- NOTE | 2020-12-20 16:02 | CR ---
Chest: Frontal view of the chest was obtained. Comparison: No prior chest imaging is available. Focal density is noted within the right cardiophrenic angle and difficult to exclude small area of parenchymal change. Slight density is noted adjacent to the left hemidiaphragm and difficult to exclude additional small parenchymal change. Lungs otherwise are clear. Heart size and mediastinum are normal. Bony structures show nothing acute. Impression: 1. Slight density within the right cardiophrenic angle as well as within the left base adjacent to the hemidiaphragm. Please exclude any symptoms of pneumonia. Findings otherwise are likely due to atelectasis. 2. Nothing acute is otherwise seen on frontal chest x-ray. Diagnostic code #3
== END 2020-12-20 15:30 | disposition home or self-care (01) ==
LOC: JD.ED 13:34
DX: J06.9 Acute upper respiratory infection, unspecified (principal); Z88.0 Allergy status to penicillin; Z87.891 Personal history of nicotine dependence; Z20.822 Contact with and (suspected) exposure to COVID-19
CPT/HCPCS: 36415; 71045; 71045-26; 80053; 83735; 83880; 84484; 85025; 85610; 85730; 93005; 93010; 99283; 99285-25; U0002

== ENCOUNTER 2024-05-21 12:14 | Emergency (ER) | payer BC ==
[2024-05-21 13:18] LABS: BASOPHILS PERCENT AUTO 0.4 % (0.0-1.0); EOSINOPHILS ABSOLUTE AUTO 0.2 K/mm3 (0.0-0.4); EOSINOPHILS PERCENT AUTO 2.4 % (0.0-6.0); HEMATOCRIT 42.5 % (42.0-52.0); HEMOGLOBIN 13.3 gm/dl (14.0-18.0); IMMATURE GRAN ABSOLUTE AUTO 0.02 K/mm3 (0.00-0.05); IMMATURE GRAN PERCENT AUTO 0.2 % (0.0-0.4); LYMPHOCYTES ABSOLUTE AUTO 1.7 K/mm3 (1.0-4.8); LYMPHOCYTES PERCENT AUTO 20.6 % (24.0-44.0); MEAN CORPUSCULAR HEMOGLOBIN 19.1 pg (28.0-32.0); MEAN CORPUSCULAR HGB CONC 31.3 g/dl (32.0-36.0); MEAN PLATELET VOLUME 10.1 fl (9.4-12.4); MONOCYTES ABSOLUTE AUTO 0.7 K/mm3 (0.0-0.8); MONOCYTES PERCENT AUTO 8.1 % (0.0-8.0); NEUTROPHILS ABSOLUTE AUTO 5.5 K/mm3 (1.8-7.7); NEUTROPHILS PERCENT AUTO 68.3 % (41.0-71.0); PLATELET COUNT,PLT 264 K/mm3 (150-400); RED BLOOD CELL COUNT 6.97 M/mm3 (4.52-5.90); WHITE BLOOD CELL COUNT,WBC 8.01 K/mm3 (3.9-11.3)
[2024-05-21 13:31] LABS: A/G RATIO 1.2 (1-2); ALANINE AMINOTRANSFERASE,ALT 40 U/L (16-63); ALBUMIN 4.2 g/dl (3.4-5.0); ALKALINE PHOSPHATASE 61 U/L (46-116); ANION GAP 14.1 (5-15); ASPARTATE AMNIOTRANSFERASE,AST 22 U/L (15-37); BILIRUBIN TOTAL 0.7 mg/dL (0.2-1.0); BLOOD UREA NITROGEN,BUN 17 mg/dL (7-18); BUN/CREATININE RATIO 14.2 (14-18); C-REACTIVE PROTEIN 0.16 mg/dL (<0.30); CALCIUM 8.5 mg/dL (8.5-10.1); CARBON DIOXIDE,CO2 26 mEq/L (21-32); CHLORIDE,CL 102 mEq/L (98-107); CREATININE 1.2 mg/dL (0.7-1.3); EST CRCL DRUG DOSING (CG) 95.14 mL/min; ESTIMATED GFR 78 mL/min (>60); GLUCOSE RANDOM 109 mg/dL (70-99); POTASSIUM,K 4.1 mEq/L (3.5-5.1); PROTEIN TOTAL,TP 7.8 g/dl (6.4-8.2); SODIUM,NA 138 mEq/L (136-145)
[2024-05-21 13:32] LABS: TROPONIN I HIGH SENSITIVITY < 4 pg/mL (<=76)
[2024-05-21 16:08] VITALS: BP 137/95; PULSE 81
== END 2024-05-21 14:57 | disposition home or self-care (01) ==
LOC: JD.ED 12:14
DX: R07.89 Other chest pain (principal); Z88.0 Allergy status to penicillin
CPT/HCPCS: 36415; 71046; 71046-26; 71250; 71250-26; 80053; 84484; 85025; 85379; 86140; 87428-QW; 93005; 99285